=== PATIENT | male | born 1965 | race Caucasian/White ===

== ENCOUNTER → 2016-06-15 | Outpatient (CLI) | payer OTHER ==
--- NOTE | 2016-06-15 12:29 | RAD ---
EXAM DESCRIPTION: Right foot series. CLINICAL HISTORY: Right foot pain. COMPARISON: March 23, 2016 TECHNIQUE: Three views were submitted for evaluation. FINDINGS: Healing and mid diaphyseal 2nd metatarsal fracture with exuberant callus formation. No additional fractures on today's study. IMPRESSION: Interval development of exuberant callus formation about a mid diaphyseal 2nd metatarsal fracture. Electronically signed by: Isac Hurst MD 06/15/2016 12:27
== END ==
LOC: RAD 11:37
PROVIDERS: ATTEND Orthopaedic Surgery
DX: S92.321A Displaced fracture of second metatarsal bone, right foot, initial encounter for closed fracture (principal)

== ENCOUNTER → 2016-10-29 | Outpatient (CLI) | payer OTHER ==
--- NOTE | 2016-10-30 07:47 | RAD ---
Procedure: XR FOOT 3 OR MORE VIEWS Exam Date: 10/29/2016 12:00 AM CDT Ordering Provider: ARVIND POLLARD Clinical Indication: STRESS FX. FOOT PAIN. F/U EXAM. M06.89 Comparison: None Findings: Mature appearing periosteal callus formation is seen about the mid shaft of the second metatarsal. No new fracture or focal osseous destruction is seen. Mild great toe MTP joint space narrowing and degenerative spurring is seen. IMPRESSION: Near complete healing of the previous stress fracture involving the second metatarsal. Electronically signed by: Kacey Scales MD 10/30/2016 7:46 AM CDT
== END | disposition home or self-care (01) ==
LOC: RAD 16:19
PROVIDERS: ATTEND Internal Medicine Rheumatology
DX: M06.89 Other specified rheumatoid arthritis, multiple sites (principal)

== ENCOUNTER → 2016-12-29 | Outpatient (CLI) | payer OTHER ==
--- NOTE | 2016-12-30 09:46 | MRI ---
EXAM DESCRIPTION: Cervical Spine CLINICAL HISTORY: NECK PAIN right upper extremity numbness extending into the digits. C6-7 radiculopathy COMPARISON: None Available. TECHNIQUE: MRI of the cervical spine is performed according to our usual protocol. FINDINGS: Straightening of the cervical spine with multilevel disc desiccation with preservation of vertebral and disc height without significant subluxation is noted. The foramen magnum and craniocervical junction is normal with no evidence of intradural or intramedullary mass. Marrow edema or destructive process is not apparent. C2-3: the disc is well hydrated. There is no loss of height. There is no bulging. The facets are unremarkable with no significant hypertrophy. There is no stenosis or impingement. C3-4: Disc desiccation with minimal annular prominence with adequate spinal canal and mild narrowing of the right C3-4 neural foramen secondary to the mild facet arthropathy. Adequate left foramen. C4-5: Disc desiccation with annular bulge, minimally more prominent to the left of midline with adequate canal and right neural foramen and mild narrowing of the left neural foramen with mild facet arthropathy C5-6: Disc desiccation with moderate annular bulge most prominent in the midline consistent with a small central protrusion with adequate spinal canal and symmetric adequate neural foramina with mild facet arthropathy. C6-7: Disc desiccation with symmetric mild annular bulge if anything slightly more prominent to the left of midline with adequate canal and neural foramina. Very mild facet arthropathy. C7-T1: Disc desiccation with normal disc contour and what canal and left neural foramen with moderate facet arthropathy with moderate narrowing of the right C7-T1 neural foramen IMPRESSION: 1. Diffuse disc desiccation with multilevel mild annular bulges with small central disc protrusion at C5-6 and very slight annular prominence to the left of midline at C6-7 and C4-5 2. Mild narrowing of the right C3-4 neural foramen and left C4-5 neural foramen. 3. Mild narrowing of the right C7-T1 neural foramen secondary to facet disease and mild uncinate process hypertrophy. Electronically signed by: Marek Aguirre MD 12/30/2016 9:45 AM CDT
== END | disposition home or self-care (01) ==
LOC: MRI 08:59
PROVIDERS: ATTEND Psychiatry & Neurology Neurology
DX: M54.12 Radiculopathy, cervical region (principal)

== ENCOUNTER 2018-04-14 05:45 | Day surgery (SDC) | payer OTHER ==
[2018-04-14] MEDS ORDERED: LACTATED RINGERS 1,000 ML ONE (06:02)
[2018-04-14] MEDS ORDERED: PROPOFOL 200 MG/20 ML VIAL IV ONE (07:00)
[2018-04-14 07:52] VITALS: BP 132/89; TEMP 98; O2SAT 94
--- NOTE | 2018-04-14 09:22 | OP ---
DATE OF PROCEDURE: 04/14/18 PREPROCEDURE DIAGNOSIS: 1. Screening for colorectal cancer. POSTPROCEDURE DIAGNOSIS: 1. Small internal hemorrhoids. PROCEDURE: 1. Colonoscopy. SURGEON: Sunny Valentine MD COMPLICATIONS: No immediate complications. SEDATION: The patient was sedated via IV propofol by the Anesthesia Department. CONSENT: Prior to the procedure, risks, benefits and alternatives to the therapy were discussed with the patient. The risks included bleeding, infection , perforation and . The patient agreed to the procedure and signed a consent. PREPROCEDURE ANESTHESIA ASSESSMENT: An examination revealed no contraindication to sedation. Airway examination demonstrated a Mallampati class type 2, ASA grade assessment type 2. Throughout the procedure, the patient's blood pressure and additional vital signs were closely monitored. PROCEDURE: The patient was placed in the left lateral decubitus position and a rectal examination was performed. The rectal examination was within normal limits. The Olympus colonoscope was passed in the anus, rectum, traversing the colon to the level of the cecum as identified by the appendiceal orifice and the terminal ileum. The scope was retracted and the mucosa was visualized. The entirety of the exam was performed under direct visualization. Retroflexion was performed in the rectum. Preparation quality was excellent. The withdrawal time was greater than 6 minutes. The patient tolerated the procedure well. FINDINGS: 1. Small non-bleeding internal hemorrhoids were found in retroflexion. 2. Otherwise, the colonic exam was grossly unremarkable. 3. The terminal ileum was entirely normal. RECOMMENDATION: 1. Return the patient home. 2. Resume previous diet. 3. Repeat colonoscopy in the next 10 years. 4. May consider obtaining fecal occult blood testing/Cologuard in the subsequent 3 years. 5. All findings were discussed with the patient and family members. 6. Return to referring physician as previously scheduled. #[id number] MTDD
== END 2018-04-14 09:10 | disposition home or self-care (01) ==
LOC: AMB 05:45
PROVIDERS: ATTEND Internal Medicine Gastroenterology
DX: Z12.11 Encounter for screening for malignant neoplasm of colon (principal); K64.8 Other hemorrhoids; I10 Essential (primary) hypertension; N40.0 Benign prostatic hyperplasia without lower urinary tract symptoms; M06.9 Rheumatoid arthritis, unspecified; Z96.652 Presence of left artificial knee joint; Z88.7 Allergy status to serum and vaccine; Z88.8 Allergy status to other drugs, medicaments and biological substances; Z91.013 Allergy to seafood; Z79.899 Other long term (current) drug therapy
CPT/HCPCS: 00812; 45378; J3490; J7120

== ENCOUNTER → 2019-01-24 | Outpatient (CLI) | payer OTHER ==
--- NOTE | 2019-01-24 14:21 | RAD ---
EXAM DESCRIPTION: Foot,Right 3 Views CLINICAL HISTORY: PAIN COMPARISON: October 29, 2016. TECHNIQUE: AP, LATERAL, AND OBLIQUE radiographs of the right foot. FINDINGS: The bony details are obscured by the overlying cast. Interval postsurgical changes consistent with open reduction and internal fixation, most likely fusion of the tarsometatarsal joints with the compression plate and multiple screws. The hardware appears grossly intact. Postsurgical changes of prior repair of the hallux valgus deformity also noted with 2 screws through the shaft of the great toe proximal phalanx. No acute fracture or dislocation. Soft tissue swelling is noted along the dorsum of the foot. IMPRESSION: 1. Interval postsurgical changes of open reduction and internal fixation of the tarsometatarsal joint with compression plate and multiple screws. The hardware appears intact. 2. Diffuse soft tissue swelling along the dorsum of the foot. Electronically signed by: Hunter Martinez MD 01/24/2019 2:19 PM CDT
== END ==
LOC: RAD 12:34
PROVIDERS: ATTEND Orthopaedic Surgery
DX: M79.89 Other specified soft tissue disorders (principal); Z98.890 Other specified postprocedural states; Z87.81 Personal history of (healed) traumatic fracture

== ENCOUNTER → 2019-05-12 | Outpatient (CLI) | payer OTHER ==
--- NOTE | 2019-05-15 10:59 | US ---
EXAM DESCRIPTION: Extremity,Lower Josh Arteries: Ultrasound. CLINICAL HISTORY: ATHEROSCLEROSIS OF [place] ARTERIES OF EXTREMITIES COMPARISON: None. TECHNIQUE: Doppler evaluation of the bilateral lower extremity arterial flow waveforms and velocities. FINDINGS: Arterial waveforms in the right lower extremity are multiphasic from the right common femoral artery through the right peroneal and posterior tibial artery. Decreased velocity and monophasic waveform in the right dorsalis pedis artery.. Arterial waveforms in the left lower extremity are all multiphasic. Comments: Possible lesion in the right anterior tibial artery proximal versus distal. IMPRESSION: 1. Decreased velocity and monophasic waveform in the right dorsalis pedis artery suggests a lesion in the proximal versus distal right anterior tibial artery. Consider confirmation with bilateral lower extremity CTA runoff protocol. 2. No evidence of significant atherosclerotic occlusive disease in the left lower extremity. Electronically signed by: Ceferino Basilio MD 05/15/2019 10:57 AM [facility]
== END ==
LOC: US 13:28
PROVIDERS: ATTEND Family Medicine
DX: I70.219 Atherosclerosis of native arteries of extremities with intermittent claudication, unspecified extremity (principal)

== ENCOUNTER → 2020-01-22 | Outpatient (CLI) | payer OTHER ==
--- NOTE | 2020-01-22 12:32 | RAD ---
EXAM DESCRIPTION: Hand,Left 3 Views CLINICAL HISTORY: 54 years Male, PAIN IN LEFT HAND COMPARISON: None. Findings: 3 views/radiographs Location: Left hand No acute fracture or dislocation. Vascular calcifications. Moderate scattered osteoarthritis of the hands with preferential involvement of the IP and first CMC joints. No osseous erosion. IMPRESSION: No evidence of acute process in the left hand. Electronically signed by: Andrew Nuñez MD 01/22/2020 12:30 PM CDT
--- NOTE | 2020-01-22 12:34 | RAD ---
EXAM DESCRIPTION: Hand,Right 3 Views CLINICAL HISTORY: 54 years Male, PAIN IN RIGHT HAND COMPARISON: None. Findings: 3 views/radiographs Location: Right hand No acute fracture or dislocation. Vascular calcifications. Mild to moderate scattered osteoarthritis of the right hand with preferential involvement of the IP and first CMC joints. No focal osseous erosion. IMPRESSION: No evidence of acute process in the right hand. Electronically signed by: Andrew Nuñez MD 01/22/2020 12:32 PM CDT
== END | disposition home or self-care (01) ==
LOC: RAD 08:06
PROVIDERS: ATTEND Orthopaedic Surgery
DX: Z01.818 Encounter for other preprocedural examination (principal); M79.641 Pain in right hand; M79.642 Pain in left hand

== ENCOUNTER 2020-01-30 05:31 | Day surgery (SDC) | payer OTHER ==
[2020-01-30] MEDS ORDERED: ceFAZolin SODIUM 1 GM VIAL ONE ×2 (06:00→06:49)
[2020-01-30] MEDS ORDERED: LACTATED RINGERS 1,000 ML ONE (06:00)
[2020-01-30] MEDS ORDERED: SODIUM CHL 0.9% 100ML MINI-BAG 100 ML IVPB ONE (06:00)
[2020-01-30] MEDS ORDERED: VANCOMYCIN HCL INJ 1,000 MG VIAL IVPB ONE ×2 (06:49→09:24)
[2020-01-30] MEDS ORDERED: BUPIVACAINE 0.25% INJ 30 ML VIAL INJ ONE (06:50)
[2020-01-30] MEDS ORDERED: LIDOCAINE 1% 10 ML VIAL INJ ONE ×3 (06:50→10:00)
[2020-01-30] MEDS ORDERED: LACTATED RINGERS 1,000 ML IVS ONE (08:43)
[2020-01-30] MEDS ORDERED: MIDAZOLAM INJ 2 MG/2 ML VIAL ONE (08:53)
[2020-01-30] MEDS ORDERED: ceFAZolin SODIUM 1 GM VIAL IRRIG ONE (09:08)
[2020-01-30] MEDS ORDERED: BUPIVACAINE 0.5% 30 ML VIAL INJ ONE (09:08)
[2020-01-30] MEDS ORDERED: PROPOFOL 200 MG/20 ML VIAL IV ONE (10:00)
[2020-01-30 10:53] VITALS: BP 125/82; TEMP 96.6; O2SAT 97
--- NOTE | 2020-01-31 13:48 | OP ---
DATE OF PROCEDURE: 01/30/20 PREOPERATIVE DIAGNOSIS: 1. Carpal tunnel syndrome, right hand. POSTOPERATIVE DIAGNOSIS: 1. Carpal tunnel syndrome, right hand. PROCEDURE: 1. Carpal tunnel release. SURGEON: Chai Coe MD. ASSESSMENT RN: Ceferino Anderson CST, SA-C. ANESTHESIA: Local with sedation. COMPLICATIONS: None. FINDINGS: Thickening of the transverse carpal ligament and narrowing of the median nerve across the carpal tunnel. INDICATION: Andreas has a history of numbness in the hand that has been causing difficulty with his daily activities. Because of the ongoing symptoms, he has requested operative intervention. After discussing the risks, benefits and alternatives to operative therapy, the patient has given informed consent for carpal tunnel release. PROCEDURE: The patient was brought to the Operating Room and placed in the supine position. Sedation was administered and local anesthetic was injected into the operative area under sterile conditions. After the injection of anesthetic, the arm was sterilely prepped and draped. A longitudinal incision was made directly overlying the transverse carpal ligament and blunt dissection was carried down to the ligament. The transverse carpal ligament was sharply transected along its length and a [place] elevator was used to ensure complete release of the ligament. Once release had been confirmed, the wound was thoroughly irrigated and the wound was closed with Nylon suture. A sterile dressing was placed and the patient was taken to the Day Surgery Unit. POSTOPERATIVE PLAN: The patient has been encouraged to do range of motion of the digits and will followup with us in two days. #[id number] MTDD
== END 2020-01-30 10:38 | disposition home or self-care (01) ==
LOC: AMB 05:31
PROVIDERS: ATTEND Orthopaedic Surgery
DX: G56.01 Carpal tunnel syndrome, right upper limb (principal); M06.9 Rheumatoid arthritis, unspecified; Z88.7 Allergy status to serum and vaccine; Z88.1 Allergy status to other antibiotic agents; Z88.5 Allergy status to narcotic agent; Z91.013 Allergy to seafood; Z79.899 Other long term (current) drug therapy; Z79.01 Long term (current) use of anticoagulants
CPT/HCPCS: 01112; 64721; J0690; J2250; J3370; J3490; J7050; J7120

== ENCOUNTER → 2020-02-08 | Outpatient (CLI) | payer OTHER | LOC: LAB.O 12:15 | PROVIDERS: ATTEND Orthopaedic Surgery | DX: Z01.818 Encounter for other preprocedural examination (principal) ==

== ENCOUNTER 2020-02-20 05:36 | Day surgery (SDC) | payer OTHER ==
[2020-02-20] MEDS ORDERED: LACTATED RINGERS 1,000 ML ONE (06:48)
[2020-02-20] MEDS ORDERED: SODIUM CHL 0.9% 100ML MINI-BAG 100 ML IVPB ONE (06:48)
[2020-02-20] MEDS ORDERED: ceFAZolin SODIUM 1 GM VIAL ONE ×2 (06:48→10:57)
[2020-02-20] MEDS ORDERED: SODIUM CHLORIDE 0.9% 50 ML VIAL ONE (07:00)
[2020-02-20] MEDS ORDERED: LIDOCAINE 1% 10 ML VIAL INJ ONE ×3 (07:00→14:20)
[2020-02-20] MEDS ORDERED: PROPOFOL 200 MG/20 ML VIAL IV ONE (07:00)
[2020-02-20] MEDS ORDERED: VANCOMYCIN HCL INJ 1,000 MG VIAL IVPB ONE ×2 (10:57→14:20)
[2020-02-20] MEDS ORDERED: BUPIVACAINE 0.25% INJ 30 ML VIAL INJ ONE (10:58)
[2020-02-20] MEDS ORDERED: MIDAZOLAM INJ 2 MG/2 ML VIAL ONE (14:16)
[2020-02-20] MEDS ORDERED: ceFAZolin SODIUM 1 GM VIAL IRRIG ONE (14:20)
[2020-02-20] MEDS ORDERED: BUPIVACAINE 0.5% 30 ML VIAL INJ ONE (14:20)
[2020-02-20] MEDS ORDERED: BUPIVACAINE LIPOSOME 13.3 MG/ML VIAL INJ ONE (14:50)
[2020-02-20 15:55] VITALS: O2SAT 99
[2020-02-20 15:56] VITALS: BP 128/83; TEMP 96.5
--- NOTE | 2020-02-23 08:53 | OP ---
DATE OF PROCEDURE: 02/20/20 PREOPERATIVE DIAGNOSIS: 1. Carpal tunnel syndrome, left hand. POSTOPERATIVE DIAGNOSIS: 1. Carpal tunnel syndrome, left hand. PROCEDURE: 1. Carpal tunnel release. SURGEON: Chai Coe MD. WATER QUALITY ANALYST: Ceferino Anderson CST, SA-C. ANESTHESIA: Local with sedation. COMPLICATIONS: None. FINDINGS: Thickening of the transverse carpal ligament. INDICATION: Mr. Jarrett has a history of numbness consistent with carpal tunnel syndrome. He has requested operative intervention. After discussing the risks, benefits and alternatives to that, the patient has given informed consent for carpal tunnel release. PROCEDURE: The patient was brought to the Operating Room and placed in the supine position. Sedation was administered and local anesthetic was injected into the operative area under sterile conditions. After the injection of anesthetic, the arm was sterilely prepped and draped. A longitudinal incision was made directly overlying the transverse carpal ligament and blunt dissection was carried down to the ligament. The transverse carpal ligament was sharply transected along its length and a [place] elevator was used to ensure complete release of the ligament. Once release had been confirmed, the wound was thoroughly irrigated and the wound was closed with Nylon suture. A sterile dressing was placed and the patient was taken to the Day Surgery Unit. POSTOPERATIVE PLAN: The patient has been encouraged to do range of motion of the digits and will followup with us in two days. #[id number] MTDD
== END 2020-02-20 15:55 | disposition home or self-care (01) ==
LOC: AMB 05:36
PROVIDERS: ATTEND Orthopaedic Surgery
DX: G56.02 Carpal tunnel syndrome, left upper limb (principal); I10 Essential (primary) hypertension; Z79.899 Other long term (current) drug therapy; Z88.1 Allergy status to other antibiotic agents; Z91.013 Allergy to seafood; Z88.7 Allergy status to serum and vaccine
CPT/HCPCS: 01810; 64721; 80307; A4216; J0690; J2250; J3370; J3490; J7050; J7120

== ENCOUNTER → 2020-05-20 | Outpatient (CLI) | payer OTHER | LOC: GMAJ 16:29 | PROVIDERS: ATTEND Family Medicine | DX: I10 Essential (primary) hypertension (principal); Z12.5 Encounter for screening for malignant neoplasm of prostate; F52.21 Male erectile disorder; E55.9 Vitamin D deficiency, unspecified ==

== ENCOUNTER → 2020-06-13 | Outpatient (CLI) | payer BC, OTHER ==
--- NOTE | 2020-06-14 16:07 | US ---
EXAM DESCRIPTION: Extremity,Lower Josh Arteries: Ultrasound. CLINICAL HISTORY: abnormal result of other cardiovascular fx study COMPARISON: None. TECHNIQUE: Doppler evaluation of the bilateral lower extremity arterial flow waveforms and velocities. FINDINGS: Arterial waveforms in the right lower extremity are multiphasic from the right DIRECTOR OF GRADUATE ADMISSIONS to the right peroneal artery. Borderline monophasic with good velocity in the right posterior tibial artery and right dorsalis pedis artery.. Arterial waveforms in the left lower extremity are multiphasic from the left DIRECTOR OF GRADUATE ADMISSIONS to the left DPA.. Comments: Elevated velocity in the right dorsalis pedis artery could indicate impending high-grade stenosis. Elevated velocity in the left dorsalis pedis artery could indicate impending mild stenosis. IMPRESSION: Doppler ultrasound of the bilateral lower extremity arterial system shows early evidence of significant atherosclerotic occlusive disease in the bilateral dorsalis pedis arteries and the right posterior tibial artery.. Electronically signed by: Ceferino Basilio MD 06/14/2020 4:[address] [facility]
== END ==
LOC: US 14:30
PROVIDERS: ATTEND Family Medicine
DX: I70.203 Unspecified atherosclerosis of native arteries of extremities, bilateral legs (principal); R94.39 Abnormal result of other cardiovascular function study

== ENCOUNTER 2020-07-06 10:06 | Inpatient (IN) | payer BC ==
[2020-07-06] MEDS ORDERED: ACETYLCYSTEIN 20 % 6,000 MG/30 ML VIAL NEB ONE (10:29)
[2020-07-06] MEDS ORDERED: IPRATROPIUM/ALBUTEROL 3 ML VIAL NEB ONE (10:29)
[2020-07-06] MEDS ORDERED: REMDESIVIR 200 MG in SODIUM CHLORIDE 0.9% 250ML 250 ML IVPB ONE (10:30)
[2020-07-06] MEDS ORDERED: HYDROcodone 7.5MG/APAP 325MG 1 EA TAB PO ONE (10:30)
[2020-07-06] MEDS ORDERED: DEXAMETHASONE INJ 10 MG/ML VIAL IV ONE (10:30)
--- NOTE | 2020-07-06 10:38 | ED.PDOC ---
History of Present Illness - General Chief Complaint: Respiratory Problem Stated Complaint: shortness of breath,cough,+COVID Time Seen by Provider: 07/06/20 10:18 Source: patient Exam Limitations: no limitations - History of Present Illness Initial Comments: The patient is a 55-year-old male presented emergency room secondary to significant increase of cough with chest discomfort associated with cough this morning. The cough is very frequent and incessant. He does have a runny nose. No sore throat. He was diagnosed with coronavirus 6 days ago and 5 days ago received a monoclonal antibody infusion. He was started on azithromycin and a steroid at that point. Yesterday was his last day of both. Apparently his father and uncle both recently from coronavirus. The patient has rheumatoid arthritis and is on multiple immunosuppressants though Indocin and one of the immunosuppressants was held this week. He denies any fevers. Chest pain is worse with coughing. Oxygen saturations are 86 to 91% on room air. No history of any asthma or COPD. No history of any known coronary artery disease. 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 Celecoxib [From Celebrex] Allergy (Verified 07/06/20 10:51) Clindamycin Allergy (Verified 07/06/20 10:51) Diclofenac Allergy (Verified 07/06/20 10:51) Home Medications: Ambulatory Orders Leflunomide [Arava] 20 mg PO DAILY 11/06/13 Methotrexate Sodium [Methotrexate] 2.5 mg PO WKLY 11/06/13 l-Methylfolate W/ Algae-Vitami [Metanx 3-90.314-2-35 mg] 1 each PO DAILY 11/06/13 Esomeprazole Magnesium [Nexium] 40 mg PO DAILY 11/07/13 Doxepin HCl [Doxepin Hydrochloride] 25 mg PO BEDTIME 04/11/18 HYDROcodone 5MG/APAP 325MG [Shade 5/325] 1 ea PO PRN PRN 04/11/18 Tamsulosin [Flomax] 0.4 mg PO BEDTIME 04/12/18 Indomethacin ER [Indocin ER] 150 mg PO DAILY 01/26/20 Olmesartan Medoxomil [Benicar] 20 mg PO BEDTIME 01/26/20 Upadacitinib [Rinvoq] 15 mg PO DAILY 01/26/20 l-Methylfolate W/ Algae-Vitami [Metanx 3-90.314-2-35 mg] 1 cap PO DAILY 01/26/20 Hydroxychloroquine Sulfate [Hydroxychloroquine Sulfat] 400 mg PO DAILY 02/19/20 Review of Systems - Review of Systems Constitutional: States: malaise EENTM: States: nose congestion Respiratory: States: cough, short of breath Cardiology: States: chest pain - Discomfort mainly with cough Gastrointestinal/Abdominal: States: no symptoms reported Genitourinary: States: no symptoms reported Musculoskeletal: States: see HPI Skin: States: no symptoms reported Neurological: States: anxiety Endocrine: States: no symptoms reported Hematologic/Lymphatic: States: no symptoms reported All other Systems: No Change from Baseline Past Medical History (General) - Patient Medical History Hx Seizures: No Hx Stroke: No Hx Asthma: No Hx of COPD: No Hx Cardiac Disorders: No Hx Congestive Heart Failure: No Hx Pacemaker: No Hx Hypertension: Yes Hx Diabetes: No Hx Gastroesophageal Reflux: Yes Hx Cancer: No Hx MRSA: Yes MRSA Source:: Wound Surgical History: tonsillectomy - Vaccination History Hx Influenza Vaccination: No Hx Pneumococcal Vaccination: Yes - Social History Hx Tobacco Use: No Hx Alcohol Use: No Hx Substance Use: No Hx Substance Use Treatment: No Hx Depression: No Hx Physical Abuse: No Hx Emotional Abuse: No - Female History Patient is a Female of Child Bearing Age (10 -59 yrs old): No Patient : No Family Medical History - Family History Father Family History: Unknown Living Status: Hx Cardiac Disease: Yes Physical Exam - Physical Exam General Appearance: Alert, No apparent distress, Other - Very frequent coughing Eye Exam: bilateral normal Ears, Nose, Throat: hearing grossly normal, normal pharynx, nasal congestion Neck: full range of motion, supple Respiratory: no respiratory distress, no accessory muscle use, rhonchi - Mild Cardiovascular/Chest: normal peripheral pulses, no edema, tachycardia - Sinus Peripheral Pulses: radial,right: 2+, radial,left: 2+ Gastrointestinal/Abdominal: non tender, soft Rectal Exam: deferred Extremity: no pedal edema, normal capillary refill, pedal edema, other - Chronic changes to right lower extremity from previous surgeries 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 II-XII nml as tested, alert, oriented x 3, other - Patient is anxious Skin Exam: normal color Comments: Vital Signs - 24 hr 07/06/20 10:07 Temperature 98.4 F Pulse Rate [ 108 H Pulse ox] Respiratory 20 Rate Blood Pressure 154/90 [R arm] O2 Sat by Pulse 90 L Oximetry Vital Signs - 24 hr 07/06/20 07/06/20 07/06/20 10:07 10:16 11:10 Temperature 98.4 F Pulse Rate [ 108 H 108 H Pulse ox] Respiratory 20 20 Rate Blood Pressure 154/90 [R arm] O2 Sat by Pulse 90 L 93 L Oximetry Progress - Progress Progress: 07/06/20 12:46 The patient is a 55-year-old male with a history of arthritis presenting after about a week of a coronavirus infection with worsening respiratory symptoms. The patient does appear to have a coronavirus pneumonia. The patient is being covered with dexamethasone, remdesivir, Zosyn and azithromycin. Additionally he is being placed on Lovenox for DVT prophylaxis purposes. Blood cultures have been obtained. The patient does require supplemental oxygen to maintain saturations greater than 90%. The patient is at increased risk due to his rheumatoid arthritis and medications required to treat them as well as the fact that he has had to fairly close family members from coronavirus. Admit for continued care. van guzman [phone] - Results/Orders Results/Orders: EKG shows mild sinus tachycardia at 100 bpm. Normal axis. Normal R wave prog ression. No ST segment or T wave changes indicative of acute ischemia. Normal QT interval. Chest x-ray is consistent with Covid pneumonia. 07/06/20 10:30 EKG STAT 07/06/20 10:48 B-TYPE NATRIURETIC PEPTIDE/BNP Stat CARDIAC ENZYME GROUP Stat COMPLETE METABOLIC PROFILE Stat MAGNESIUM Stat THYROID STIMULATING HORMONE Stat 07/06/20 11:03 BLOOD CULTURE Stat 07/06/20 11:34 Azithromycin IV [Zithromax IV] 500 mg Sodium Chloride 0.9% 250Ml [NS 250ml] 250 ml IVPB ONCE 07/07/20 09:00 Oxygen Daily Laboratory Results - last 24 hr 07/06/20 07/06/2021 10:48 10:48 10:48 WBC 8.1 RBC 4.42 L Hgb 14.8 Hct 43.2 MCV 97.8 H MCH 33.4 H MCHC 34.1 RDW 15.5 H Plt Count 253 MPV 7.8 Absolute Neuts (auto) Not Reportable Absolute Lymphs (auto) Not Reportable Absolute Monos (auto) Not Reportable Absolute Eos (auto) Not Reportable Neutrophils % Not Reportable Neutrophils % (Manual) 79.0 H Lymphocytes % Not Reportable Lymphocytes % (Manual) 7.0 Monocytes % Not Reportable Monocytes % (Manual) 7.0 Eosinophils % Not Reportable Basophils % Not Reportable Band Neutrophils 7.0 H Eosinophils 0.0 Basophils 0.0 Platelet Estimate Normal Normal RBC Morphology 1+aniso PT 10.4 INR 1.05 PTT (SP) 26.6 Fibrinogen D-Dimer, Quantitative 734.0 H* Sodium 131 L Potassium 4.5 Chloride 92 L Carbon Dioxide 29 Anion Gap 14.5 BUN 26 H Creatinine 1.03 BUN/Creatinine Ratio 25.2 H Random Glucose 108 H Serum Osmolality 267.9 L Lactic Acid Calcium 8.7 Magnesium 2.3 Ferritin Total Bilirubin 1.3 H AST 131 H ALT 143 H Alkaline Phosphatase 27 L LD Total Creatine Kinase 258 H* CK-MB (CK-2) 1.4 Troponin I < 0.02 C-Reactive Protein B-Natriuretic Peptide < 15.0 Serum Total Protein 7.6 Albumin 4.0 Globulin 3.6 H Albumin/Globulin Ratio 1.1 TSH 0.63 07/06/20 07/06/20 07/06/20 10:48 10:48 10:48 WBC RBC Hgb Hct MCV MCH MCHC RDW Plt Count MPV Absolute Neuts (auto) Absolute Lymphs (auto) Absolute Monos (auto) Absolute Eos (auto) Neutrophils % Neutrophils % (Manual) Lymphocytes % Lymphocytes % (Manual) Monocytes % Monocytes % (Manual) Eosinophils % Basophils % Band Neutrophils Eosinophils Basophils Platelet Estimate Normal RBC Morphology PT INR PTT (SP) Fibrinogen 698 H D-Dimer, Quantitative Sodium Potassium Chloride Carbon Dioxide Anion Gap BUN Creatinine BUN/Creatinine Ratio Random Glucose Serum Osmolality Lactic Acid 1.6 Calcium Magnesium Ferritin > 1500.0 H Total Bilirubin AST ALT Alkaline Phosphatase LD Total Creatine Kinase CK-MB (CK-2) Troponin I C-Reactive Protein B-Natriuretic Peptide Serum Total Protein Albumin Globulin Albumin/Globulin Ratio TSH 07/06/20 10:48 WBC RBC Hgb Hct MCV MCH MCHC RDW Plt Count MPV Absolute Neuts (auto) Absolute Lymphs (auto) Absolute Monos (auto) Absolute Eos (auto) Neutrophils % Neutrophils % (Manual) Lymphocytes % Lymphocytes % (Manual) Monocytes % Monocytes % (Manual) Eosinophils % Basophils % Band Neutrophils Eosinophils Basophils Platelet Estimate Normal RBC Morphology PT INR PTT (SP) Fibrinogen D-Dimer, Quantitative Sodium Potassium Chloride Carbon Dioxide Anion Gap BUN Creatinine BUN/Creatinine Ratio Random Glucose Serum Osmolality Lactic Acid Calcium Magnesium Ferritin Total Bilirubin AST ALT Alkaline Phosphatase LD Total 389 H Creatine Kinase CK-MB (CK-2) Troponin I C-Reactive Protein 9.0 H* B-Natriuretic Peptide Serum Total Protein Albumin Globulin Albumin/Globulin Ratio TSH Departure - Departure Clinical Impression: Pneumonia due to COVID-19 virus, Immunocompromised state Disposition: Admit Patient Home Medications: Ambulatory Orders Leflunomide [Arava] 20 mg PO DAILY 11/06/13 Methotrexate Sodium [Methotrexate] 2.5 mg PO WKLY 11/06/13 l-Methylfolate W/ Algae-Vitami [Metanx 3-90.314-2-35 mg] 1 each PO DAILY 11/06/13 Esomeprazole Magnesium [Nexium] 40 mg PO DAILY 11/07/13 Doxepin HCl [Doxepin Hydrochloride] 25 mg PO BEDTIME 04/11/18 HYDROcodone 5MG/APAP 325MG [Shade 5/325] 1 ea PO PRN PRN 04/11/18 Tamsulosin [Flomax] 0.4 mg PO BEDTIME 04/12/18 Indomethacin ER [Indocin ER] 150 mg PO DAILY 01/26/20 Olmesartan Medoxomil [Benicar] 20 mg PO BEDTIME 01/26/20 Upadacitinib [Rinvoq] 15 mg PO DAILY 01/26/20 l-Methylfolate W/ Algae-Vitami [Metanx 3-90.314-2-35 mg] 1 cap PO DAILY 01/26/20 Hydroxychloroquine Sulfate [Hydroxychloroquine Sulfat] 400 mg PO DAILY 02/19/20 Decision To Admit - Decistion To Admit Decision to Admit Reason: Medical Nature Decision to Admit Date: 07/06/20 Decision to Admit Time: 12:48
--- NOTE | 2020-07-06 10:41 | RAD ---
EXAM: XR Chest, 1 View CLINICAL HISTORY: covid pna TECHNIQUE: Frontal view of the chest. COMPARISON: 11/06/2013 FINDINGS: Lungs: Groundglass infiltrates are identified in the periphery of both lungs left greater than right. Pleural space: No pneumothorax. No pleural effusion. Heart: Normal cardiac size and configuration. Mediastinum: No abnormality noted. Bones/joints: No osseous destruction or sclerosis noted. IMPRESSION: Groundglass infiltrates noted with typical imaging features of covid pneumonia. Electronically signed by: Malina Guzman MD 07/06/2020 10:40 AM [facility]
[2020-07-06] MEDS ORDERED: PIPERACILLIN/TAZOBACTAM 3.375 GM in SODIUM CHLORIDE 0.9% 100ML 100 ML IVPB ONE (11:34)
[2020-07-06] MEDS ORDERED: AZITHROMYCIN IV 500 MG in SODIUM CHLORIDE 0.9% 250ML 250 ML IVPB ONE (11:34)
[2020-07-06] MEDS ORDERED: ENOXAPARIN SODIUM 100 MG/ML SYG SUBCU ONE (11:50)
--- NOTE | 2020-07-06 12:31 | HP ---
SUPERVISING PHYSICIAN: Bello Hayes MD CHIEF COMPLAINT: Shortness of breath. Recent diagnosis of Covid. HISTORY OF PRESENT ILLNESS: Mr. Jarrett is a 55 year-old male patient who presented to the Emergency Room today secondary to a significant increasing cough with chest discomfort that he associated this morning with previous Covid infection. He was diagnosed 6 days previous with Covid and received monoclonal antibody infusion. At that time, he was started on azithromycin and steroids. He finished his last dose of both of those yesterday. He has a history of rheumatoid arthritis and is on multiple immunosuppressants. He denied any chest pain other than associated with the cough. Oxygen saturation in the Emergency Room showed 86 6o 91% on room air. Laboratory studies today shows a white count of 8,100 with a left shift. His coagulation studies did show a D-dimer elevated at 734 and chemistries showed C-reactive protein of 9.0. Creatinine normal at 1.3 with normal lactic acid at 1.6. Chest x-ray, single-view, per radiology interpretation shows groundglass infiltrates noted with typical imaging features of Covid pneumonia. Given his underlying immunosuppressant history with rheumatoid arthritis and recent Covid diagnoses and worsening shortness of breath, he is now going to be admitted for further treatment of Covid pneumonitis. He was admitted in stable condition. PAST MEDICAL HISTORY: 1. Rheumatoid arthritis followed by Dr. Misael Che in [place]. 2. Hypertension. 3. Benign prostatic hypertrophy. 4. Gout. 5. Osteoporosis with multiple fragility fractures of the right foot. PAST SURGICAL HISTORY: 1. Left knee replacement in 2013. 2. Right foot reconstruction in 2018. 3. Carpal tunnel release in 2019. 4. Right knee arthroscopic procedure for median meniscal tear in 2008. CURRENT MEDICATIONS: He is brining an updated list of medications for verification in electronic medical records. ALLERGIES: Shellfish, morphine, Celebrex, Clindamycin, Diclofenac. FAMILY HISTORY: Noncontributory to current admission. SOCIAL HISTORY: The patient is retired from [employer]. He is and has 3 children. He lives in [place], [place]. He has no history of smoking and does not drink or use illicit drugs. REVIEW OF SYSTEMS: CONSTITUTIONAL: Positive for general malaise, fevers. HEENT: Positive for nasal congestion. Denies headaches. earaches, sore throat, vision changes. CHEST: Positive for history of worsening cough, shortness of breath as noted in history of present illness. HEART: Denies chest pain other than associated with cough. No reported syncopal episodes, no tachycardia. ABDOMEN: Denies nausea, vomiting, diarrhea or constipation, abdominal pain GENITOURINARY: Denies dysuria, hematuria or polyuria. MUSCULOSKELETAL: Denies arthralgias other than chronic pain in his right foot with multiple surgeries. SKIN: Denies unexplained lesions, rashes, moles or changes. NEUROLOGIC: Does have some anxiety but denies history of ataxia, seizures, vision changes, migraines or other neurological deficits. HEMATOLOGICAL: Denies unexplained bleeding, easy bruising or transfusion reactions. PHYSICAL EXAMINATION: VITAL SIGNS: Admission to the Emergency Room, temperature 100.4, blood pressure 120/77, respirations 20, tachycardic at 121 with oxygen saturation on 3 liters nasal cannula and initially on room air was 86%. GENERAL: The patient looks to be resting comfortably and in no apparent distress. He does exhibit a frequent cough. HEENT: Tympanic membranes are clear bilaterally. Oropharynx is pink, moist. There was some mild nasal congestion. NECK: Supple, non-tender, full range of motion, no jugular venous distention. CHEST: Mild rhonchi heard bilateral but otherwise fairly clear, just a little diminished. No rales or wheezing. CARDIOVASCULAR: Regular rate and rhythm without appreciable murmurs, rubs, or gallops. He is showing sinus tachycardia on bedside monitor. ABDOMEN: Soft, non-tender, positive bowel sounds. BACK: Without CVA tenderness or vertebral tenderness. EXTREMITIES: He has chronic changes to his right foot from pervious surgery, otherwise no cyanosis, clubbing, or edema. RECTAL: Exam deferred. NEUROLOGIC: Cranial nerves II through XII are grossly intact. He is alert and oriented x3. LABORATORY: White count 8,100, hemoglobin 14.8, hematocrit 43.2, platelet count 253,000. Differential does show a left shift with 7 bands. PT/PTT normal. D- dimer elevated at 734, fibrinogen 698. Chemistries showing sodium 131, potassium 4.5, BUN 26, creatinine 1.03, lactic acid 1.6, calcium and magnesium normal. Ferritin greater than 1500. Bilirubin showing slight elevation at 1.3, AST elevated at 131, ALT at 143. LDH 389, CK 258, C-reactive protein 9. BMP less than 15, TSH normal at 0.63. MICROBIOLOGY: Blood cultures pending. RADIOLOGY: Chest x-ray per radiology interpretation showed groundglass infiltrates noted, typical imaging features of Covid pneumonia. Please see that report for details. Covid testing was done in the clinic 6 days previously and he was positive. ASSESSMENT: 1. Covid pneumonia in a patient immunocompromised due to rheumatoid arthritis and multiple immunosuppressant medications. 2. History of osteoarthritis on multiple rheumatoid medications. 3. Hypertension. 4. Benign prostatic hypertrophy. 5. Gout. 6. Osteoporosis with associated multiple fragility fractures of the right foot. PLAN: The patient is going to be admitted for initiation of treatment for Covid. He will be continued on Rocephin, Remdesivir. azithromycin, Decadron. He will be on Protonix for PPI for gastric protection. Given his elevated D- dimer and his risk factors, we will start him on fairly aggressive management with Lovenox at 1 mg/kg. He will have aggressive pulmonary hygiene with albuterol treatments as needed. Will follow his labs as per protocol. I would anticipate his length of stay to be at least 2-3 days. Given his significant cough, we will start him on some promethazine with codeine as needed. Until we can transition patient to outpatient management, we will continue to monitor and treat as needed. [facility][id number] [facility]
[2020-07-06] MEDS ORDERED: IBUPROFEN 200 MG TAB PO ONE (12:55)
[2020-07-06] MEDS: IV SET AND CAP CHANGE INJ INJ SCH (14:00)
[2020-07-06] MEDS ORDERED: ALBUTEROL INHALER 64 PUFF/8GM INH PRN (14:29)
[2020-07-06] MEDS ORDERED: ONDANSETRON INJ 4 MG/2 ML VIAL IV PRN (14:32)
[2020-07-06] MEDS ORDERED: ACETAMINOPHEN 325 MG TAB PO PRN (14:32)
[2020-07-06] MEDS ORDERED: SODIUM CHLORIDE 0.9% (FLUSH) 10 ML SYG IV PRN (14:32)
[2020-07-06] MEDS: ALBUTEROL INHALER 64 PUFF/8GM INH SCH ×2 (16:59→19:45)
[2020-07-06] MEDS: KETOROLAC TROMETHAMINE INJ 30 MG/ML VIAL IV SCH ×2 (17:15→22:00)
[2020-07-06] MEDS: PROMETHAZINE W/CODEINE SYR 6.25 MG/10 MG/5 ML UD PO PRN (17:43)
[2020-07-06] MEDS: ENOXAPARIN SODIUM 100 MG/ML SYG SUBCU SCH (20:30)
[2020-07-06] MEDS: TEMAZEPAM 15 MG CAP PO PRN (23:44)
[2020-07-07] MEDS: KETOROLAC TROMETHAMINE INJ 30 MG/ML VIAL IV SCH ×4 (04:25→22:05)
[2020-07-07] MEDS: PANTOPRAZOLE SODIUM IV 40 MG VIAL IV SCH (06:14)
--- NOTE | 2020-07-07 07:06 | RAD ---
PROCEDURE: XR CHEST 1 VIEW HISTORY: COVID COMPARISON: Portable chest, 07/06/2020 FINDINGS: The heart is normal in stable. Focal airspace disease present in the periphery of the mid lungs bilaterally, unchanged. No pleural effusion or pneumothorax. IMPRESSION: Peripheral bilateral airspace disease is unchanged compatible with COVID. Electronically signed by: Rogerio Nieto MD 07/07/2020 7:05 AM [facility]
[2020-07-07] MEDS ORDERED: REMDESIVIR IV 100 MG VIAL ONE (07:21)
[2020-07-07] MEDS ORDERED: SODIUM CHLORIDE 0.9% 250ML 250 ML ONE ×2 (07:21→10:45)
[2020-07-07] MEDS: ALBUTEROL INHALER 64 PUFF/8GM INH SCH ×4 (09:00→20:53)
[2020-07-07] MEDS: ENOXAPARIN SODIUM 100 MG/ML SYG SUBCU SCH ×2 (09:08→20:30)
[2020-07-07] MEDS: DEXAMETHASONE INJ 10 MG/ML VIAL IV SCH (09:09)
[2020-07-07] MEDS: REMDESIVIR 100 MG in SODIUM CHLORIDE 0.9% 250ML 250 ML IVPB SCH (09:09)
[2020-07-07] MEDS: BIFIDOBACTERIUM INFANTIS 4 MG CAP PO SCH (09:09)
[2020-07-07] MEDS ORDERED: AZITHROMYCIN IV 500 MG VIAL IVPB ONE (10:44)
[2020-07-07] MEDS: AZITHROMYCIN IV 500 MG in SODIUM CHLORIDE 0.9% 250ML 250 ML IVPB SCH (11:32)
--- NOTE | 2020-07-07 16:04 | PN ---
SUPERVISING PHYSICIAN: Funmi Hayes MD DATE: 07/07/20 SUBJECTIVE: The patient notes he feels much better today. He actually has his taste back. He can breathe through his nose. He does not feel as horrible with body aches as he did yesterday. He is actual O2 saturations are remaining stable. He is maintaining his O2 on 3 liters nasal cannula without any significant distress. OBJECTIVE: VITAL SIGNS: Temperature 98.8, pulse 84, blood pressure 128/88, respirations 20, saturation 92-93% on 3 liters nasal cannula. GENERAL: The patient is resting comfortably. He does not look to be in any distress. CHEST: Fairly clear, just a little diminished towards the bases bilaterally. HEART: Regular rate and rhythm. ABDOMEN: Soft, nontender. Positive bowel sounds. EXTREMITIES: No edema. NEUROLOGIC: Alert and oriented times three. LABORATORY: White count 6,800, hemoglobin 12.9, hematocrit 38.0, platelet count 220,000. Differential does show a left shift, but no longer shows any bands today. Coagulation studies show D-dimer normalized to 284. Chemistries show improvement in his sodium at 132. Creatinine 0.92. Magnesium and calcium are normal. AST down to 90, ALT down to 116. CRP went from 9.0 to 11.9. MICROBIOLOGY: Blood cultures remain negative at 24 hours. RADIOLOGY: Repeat chest x-ray this morning per radiologic interpretation shows peripheral bilateral airspace disease, unchanged, compatible with COVID. ASSESSMENT: 1. COVID pneumonia in a patient immunocompromised due to rheumatoid arthritis and multiple immunosuppressant medications. 2. Mild electrolyte imbalance in the form of hyponatremia, improving. 3. History of osteoarthritis on multiple rheumatoid medications. 4. Hypertension. 5. Benign prostatic hypertrophy. 6. Gout. 7. Osteoporosis with associated multiple fragility fractures of the right foot. PLAN: We will continue current plan of care with treatment with Rocephin, remdesivir, azithromycin, Decadron. He remains on Protonix. I do have him on weight based 1 mg per kg Lovenox just because of his risk factors although his D-dimer did normalize today. He is still maintaining O2 saturations below 4 liter on nasal cannula which hopefully will allow him to go home tomorrow. Until the patient can transition to outpatient management, we will continue to monitor and treat as needed. When he discharges, we probably need to talk to his primary care physician, Dr. Kim, to see if he wants him to go home on any anticoagulation as well as need to make note to his multiple medications for his rheumatoid arthritis while he is in the process of getting over COVID infection. #[id number] [facility]
[2020-07-07] MEDS ORDERED: KETOROLAC TROMETHAMINE INJ 30 MG/ML VIAL ONE ×2 (16:28→19:20)
[2020-07-07] MEDS ORDERED: PROMETHAZINE W/CODEINE SYR 6.25 MG/10 MG/5 ML UD PO ONE (17:39)
[2020-07-07] MEDS: PROMETHAZINE W/CODEINE SYR 6.25 MG/10 MG/5 ML UD PO PRN (18:01)
[2020-07-07] MEDS ORDERED: ENOXAPARIN SODIUM 100 MG/ML SYG SUBCU ONE (19:20)
[2020-07-07] MEDS ORDERED: TEMAZEPAM 15 MG CAP ONE (19:20)
[2020-07-07] MEDS ORDERED: SODIUM CHL 0.9% 50ML MIN-BAG+ 50 ML IVPB ONE (19:21)
[2020-07-07] MEDS ORDERED: cefTRIAXone SODIUM 1 GM VIAL ONE (19:21)
[2020-07-07] MEDS: guaiFENesin ER TAB 600 MG TAB PO SCH (20:30)
[2020-07-07] MEDS: cefTRIAXone SODIUM 1 GM in SODIUM CHL 0.9% 50ML MIN-BAG+ 50 ML IVPB SCH (20:30)
[2020-07-07] MEDS: TEMAZEPAM 15 MG CAP PO PRN (21:42)
[2020-07-08] MEDS ORDERED: KETOROLAC TROMETHAMINE INJ 30 MG/ML VIAL ONE ×2 (03:06→08:28)
[2020-07-08] MEDS ORDERED: PANTOPRAZOLE SODIUM IV 40 MG VIAL ONE (03:06)
[2020-07-08] MEDS: KETOROLAC TROMETHAMINE INJ 30 MG/ML VIAL IV SCH (04:30)
[2020-07-08] MEDS: PANTOPRAZOLE SODIUM IV 40 MG VIAL IV SCH (05:58)
--- NOTE | 2020-07-08 06:25 | RAD ---
PROCEDURE:XR CHEST 1 VIEW HISTORY:COVID COMPARISON: July 07, 2020 FINDINGS: The heart appears unremarkable. There are stable bilateral pulmonary infiltrates. There is no effusion or pneumothorax There are no acute bony or soft tissue abnormalities. IMPRESSION: Stable chest x-ray. Electronically signed by: Jamil Bhatia MD 07/08/2020 6:24 AM [facility]
[2020-07-08] MEDS ORDERED: BIFIDOBACTERIUM INFANTIS 4 MG CAP ONE (08:27)
[2020-07-08] MEDS ORDERED: ENOXAPARIN SODIUM 100 MG/ML SYG SUBCU ONE (08:27)
[2020-07-08] MEDS ORDERED: DEXAMETHASONE INJ 10 MG/ML VIAL ONE (08:27)
[2020-07-08] MEDS ORDERED: SODIUM CHLORIDE 0.9% 250ML 250 ML ONE (08:28)
[2020-07-08] MEDS ORDERED: REMDESIVIR IV 100 MG VIAL ONE (08:28)
[2020-07-08] MEDS: ALBUTEROL INHALER 64 PUFF/8GM INH SCH ×4 (08:45→20:50)
[2020-07-08] MEDS: BIFIDOBACTERIUM INFANTIS 4 MG CAP PO SCH (09:09)
[2020-07-08] MEDS: DEXAMETHASONE INJ 10 MG/ML VIAL IV SCH (09:09)
[2020-07-08] MEDS: guaiFENesin ER TAB 600 MG TAB PO SCH ×2 (09:09→20:43)
[2020-07-08] MEDS: ENOXAPARIN SODIUM 100 MG/ML SYG SUBCU SCH ×2 (09:10→20:42)
[2020-07-08] MEDS: REMDESIVIR 100 MG in SODIUM CHLORIDE 0.9% 250ML 250 ML IVPB SCH (09:10)
--- NOTE | 2020-07-08 10:04 | PN ---
SUPERVISING PHYSICIAN: Kennedy Kim MD DATE: 07/08/20 SUBJECTIVE: The patient is sitting up in a chair with no significant complaints of shortness of breath. He actually has no complaints at all. He does have a dry, hacking cough which is nagging at times, but other than that, he is without complaint. OBJECTIVE: VITAL SIGNS: Blood pressure 145/83, heart rate 90, respiratory rate 16, temperature 98.6, oxygen saturation 95% on 3 liters via nasal cannula. GENERAL: Mr. Jarrett is a 55-year-old male patient in no active distress. NEUROLOGIC: The patient is alert and oriented. LUNGS: Diminished, but otherwise clear to auscultation bilaterally. CARDIOVASCULAR: Regular rate and rhythm. Normal S1, S2. ABDOMEN: Soft. Positive bowel sounds. EXTREMITIES: Lower extremities with no edema. LABORATORY: White count 10.2, hemoglobin 12.9, platelet count 261. D-dimer 153. CRP 4.9, which is improved from 11.9. Transaminases are improved from yesterday. AST 63 from 90. ALT 90 from 116. BUN 29, creatinine 0.85. RADIOLOGY: Chest x-ray showing no acute changes from previous. ASSESSMENT: 1. Acute hypoxemic respiratory failure. 2. COVID pneumonitis. 3. Rheumatoid arthritis on immunosuppressive therapy. 4. Hypertension. 5. Benign prostatic hypertrophy. 6. Gout. 7. Osteoporosis. PLAN: We will continue the remdesivir, dexamethasone and empiric antibiotics. We will continue bronchodilator therapy as well as pulmonary hygiene. We will continue to wean oxygen as tolerated and monitor x-rays and labs as needed. [facility][id number] [facility]
[2020-07-08] MEDS ORDERED: KETOROLAC TROMETHAMINE INJ 30 MG/ML VIAL IV PRN (10:10)
[2020-07-08] MEDS: PROMETHAZINE W/CODEINE SYR 6.25 MG/10 MG/5 ML UD PO PRN ×2 (10:20→16:15)
[2020-07-08] MEDS: AZITHROMYCIN IV 500 MG in SODIUM CHLORIDE 0.9% 250ML 250 ML IVPB SCH (11:23)
[2020-07-08] MEDS: CHLORPHENIRAMINE W/HYDROCODONE 5 ML UD PO SCH (17:50)
[2020-07-08] MEDS: cefTRIAXone SODIUM 1 GM in SODIUM CHL 0.9% 50ML MIN-BAG+ 50 ML IVPB SCH (20:43)
[2020-07-08] MEDS: TEMAZEPAM 15 MG CAP PO PRN (21:02)
[2020-07-09] MEDS ORDERED: PANTOPRAZOLE SODIUM TAB 40 MG PO ONE (03:19)
[2020-07-09] MEDS: PROMETHAZINE W/CODEINE SYR 6.25 MG/10 MG/5 ML UD PO PRN ×3 (03:19→20:42)
[2020-07-09] MEDS: PANTOPRAZOLE SODIUM TAB 40 MG PO SCH (06:02)
[2020-07-09] MEDS: CHLORPHENIRAMINE W/HYDROCODONE 5 ML UD PO SCH ×2 (06:02→17:05)
--- NOTE | 2020-07-09 07:20 | RAD ---
EXAM: XR Chest, 1 View CLINICAL HISTORY: The patient is 55 years old and is Male; COVID TECHNIQUE: Single upright portable view of the chest. COMPARISON: July 08, 2020. FINDINGS: Lungs: Pulmonary opacities in the lungs are not significantly changed. No pulmonary vascular congestion. Pleural space: Unremarkable. No pneumothorax. Heart: Cardiomediastinal silhouette is not significantly changed given the differences in technique. Mediastinum: See above. Bones/joints: The bones and joints are unchanged as visualized. Upper abdomen: No free air in the visualized upper abdomen. IMPRESSION: No significant change compared with the prior study. Electronically signed by: Isabel Nieves MD 07/09/2020 7:19 AM [facility]
[2020-07-09] MEDS: ENOXAPARIN SODIUM 100 MG/ML SYG SUBCU SCH ×2 (08:20→20:41)
[2020-07-09] MEDS: REMDESIVIR 100 MG in SODIUM CHLORIDE 0.9% 250ML 250 ML IVPB SCH (08:20)
[2020-07-09] MEDS: DEXAMETHASONE INJ 10 MG/ML VIAL IV SCH (08:21)
[2020-07-09] MEDS: BIFIDOBACTERIUM INFANTIS 4 MG CAP PO SCH (08:21)
[2020-07-09] MEDS: guaiFENesin ER TAB 600 MG TAB PO SCH ×2 (08:21→20:42)
[2020-07-09] MEDS: ALBUTEROL INHALER 64 PUFF/8GM INH SCH ×4 (08:40→21:01)
[2020-07-09] MEDS: BUDESONIDE NEBS 0.5 MG/2 ML INH NEB SCH ×2 (09:40→21:01)
--- NOTE | 2020-07-09 10:28 | PN ---
SUPERVISING PHYSICIAN: Kennedy Kim MD DATE: 07/09/20 SUBJECTIVE: The patient still feels really good except for the cough. He was started Tussionex yesterday in addition to the promethazine with codeine. He states the cough is a little bit better. OBJECTIVE: VITAL SIGNS: Blood pressure 135/87, heart rate 80, respiratory rate 18, temperature 98.3, oxygen saturation 91% on 1 liter via nasal cannula. GENERAL: Mr. Jarrett is a 55-year-old male patient in no active distress. NEUROLOGIC: The patient is alert. LUNGS: Some scattered rales, but mainly diminished. CARDIOVASCULAR: Regular rate and rhythm. Normal S1, S2. ABDOMEN: Soft. Positive bowel sounds. EXTREMITIES: Lower extremities with no edema. LABORATORY: CBC with white count 9.2, hemoglobin 12.7, platelet count 273. Chemistry still pending. RADIOLOGY: Chest x-ray not showing any acute changes. ASSESSMENT: 1. Acute hypoxemic respiratory failure. 2. COVID pneumonitis. 3. Rheumatoid arthritis on immunosuppressive therapy. 4. Hypertension. 5. Benign prostatic hypertrophy. 6. Gout. 7. Osteoporosis. PLAN: We have successfully decreased the amount of oxygen that he is on, however, he is still requiring about 1 liter. We will continue the remdesivir, empiric antibiotics and dexamethasone. We will continue bronchodilator therapy and I am going to add some Pulmicort to see if it helps with his cough. We will continue to monitor x-rays and labs as needed. I spoke with him and his regarding discharge planning. I discussed the possibility of requiring home oxygen, which initially the patient did not want, however, at this point, if he is not in any distress and just requiring 1 or 2 liters of oxygen to go home, he definitely could do that. However, he is not quite ready to go as of yet. #[id number] [facility]
[2020-07-09] MEDS: AZITHROMYCIN IV 500 MG in SODIUM CHLORIDE 0.9% 250ML 250 ML IVPB SCH (10:46)
[2020-07-09] MEDS: IV SET AND CAP CHANGE INJ INJ SCH (15:11)
[2020-07-09] MEDS: cefTRIAXone SODIUM 1 GM in SODIUM CHL 0.9% 50ML MIN-BAG+ 50 ML IVPB SCH (20:39)
[2020-07-09] MEDS: TEMAZEPAM 15 MG CAP PO PRN (20:42)
[2020-07-10] MEDS: PANTOPRAZOLE SODIUM TAB 40 MG PO SCH (05:45)
[2020-07-10] MEDS: CHLORPHENIRAMINE W/HYDROCODONE 5 ML UD PO SCH (05:45)
[2020-07-10] MEDS: BUDESONIDE NEBS 0.5 MG/2 ML INH NEB SCH (08:00)
[2020-07-10] MEDS: ALBUTEROL INHALER 64 PUFF/8GM INH SCH ×2 (08:00→11:40)
[2020-07-10] MEDS: BIFIDOBACTERIUM INFANTIS 4 MG CAP PO SCH (08:36)
[2020-07-10] MEDS: ENOXAPARIN SODIUM 100 MG/ML SYG SUBCU SCH (08:36)
[2020-07-10] MEDS: guaiFENesin ER TAB 600 MG TAB PO SCH (08:36)
[2020-07-10] MEDS: DEXAMETHASONE INJ 10 MG/ML VIAL IV SCH (08:36)
[2020-07-10] MEDS: REMDESIVIR 100 MG in SODIUM CHLORIDE 0.9% 250ML 250 ML IVPB SCH (08:37)
[2020-07-10] MEDS: PROMETHAZINE W/CODEINE SYR 6.25 MG/10 MG/5 ML UD PO PRN (08:37)
[2020-07-10] MEDS: AZITHROMYCIN IV 500 MG in SODIUM CHLORIDE 0.9% 250ML 250 ML IVPB SCH (11:00)
[2020-07-10 12:15] VITALS: BP 131/80; TEMP 96.7; O2SAT 90
--- NOTE | 2020-07-24 11:30 | DS ---
SUPERVISING PHYSICIAN: Kennedy Kim MD ADMISSION DIAGNOSIS: 1. COVID pneumonia in a patient immunocompromised due to rheumatoid arthritis and multiple immunosuppressant medications. 2. History of osteoarthritis on multiple rheumatoid medications. 3. Hypertension. 4. Benign prostatic hypertrophy. 5. Gout. 6. Osteoporosis with associated multiple fragility fractures of the right foot. DISCHARGE DIAGNOSIS: 1. Acute hypoxemic respiratory failure. 2. COVID pneumonitis. 3. Rheumatoid arthritis on immunosuppressive therapy. 4. Hypertension. 5. Benign prostatic hypertrophy. 6. Gout. 7. Osteoporosis. REASON FOR HOSPITALIZATION: Mr. Jarrett is a 55 year-old male patient who presented to the Emergency Room today secondary to a significant increasing cough with chest discomfort that he associated this morning with previous COVID infection. He was diagnosed 6 days previous with COVID and received monoclonal antibody infusion. At that time, he was started on azithromycin and steroids. He finished his last dose of both of those yesterday. He has a history of rheumatoid arthritis and is on multiple immunosuppressants. He denied any chest pain other than associated with the cough. Oxygen saturation in the Emergency Room showed 86 6o 91% on room air. Laboratory studies today shows a white count of 8,100 with a left shift. His coagulation studies did show a D-dimer elevated at 734 and chemistries showed C-reactive protein of 9.0. Creatinine normal at 1.3 with normal lactic acid at 1.6. Chest x-ray, single-view, per radiology interpretation shows groundglass infiltrates noted with typical imaging features of COVID pneumonia. Given his underlying immunosuppressant history with rheumatoid arthritis and recent COVID diagnoses and worsening shortness of breath, he is now going to be admitted for further treatment of COVID pneumonitis. He was admitted in stable condition. LABORATORY: Discharge white count 8,700, hemoglobin 13, hematocrit 38, platelet count 268,000. Differential with a left shift. Coagulation studies showed D- dimer normalized to 153. Chemistries show sodium 133, potassium 4.2, otherwise electrolytes normal. Creatinine 0.77, calcium 8.3, C-reactive protein 10.7. MICROBIOLOGY: Blood cultures negative after 5 days. RADIOLOGY: Final chest x-ray on discharge showed pulmonary opacities in the lungs with no pulmonary vascular congestion. Please see all reports for details. EK-lead EKG on admission showed normal sinus rhythm without any ST or T- wave changes to indicate acute ischemia. HOSPITAL COURSE: Mr. Jarrett was admitted for COVID pneumonitis. He was treated with Rocephin, remdesivir, azithromycin, Decadron. He was also started on Lovenox 1 mg per kg. His oxygenation needs showed initially on admission his oxygen saturation was 90% on room. He did go up to a maximum of 3 liters nasal cannula with oxygen saturation 93-96%. On date of discharge, ambulation study showed he dropped down to 89% when walking approximately 150 feet. He recovered to 90-91% during the walk, requiring 1 to 2 liters to maintain greater than 93%. It was felt he had improved clinically well enough to continue with outpatient management. Home oxygen arrangements were made. On date of discharge, vital signs showed he was afebrile at 96.7, pulse 99, blood pressure 131/80, respirations 18, saturation 93-94% on 2 liters nasal cannula. PLAN: Mr. Jarrett was discharged on 07/10/[address] Kim on 07/15/20 at 14:15 via telemedicine. He was to wear his oxygen as directed via nasal cannula. He was to resume his home medications as directed. He was to resume diet as tolerated and increase activity as tolerated. Medications prescribed on discharge included: 1. Align 4 mg daily while on antibiotics. 2. Dexamethasone 6 mg daily, #6, no refills. 3. Guaifenesin 600 mg twice daily while on antibiotics. 4. Cefdinir 300 mg twice daily, #12, no refills. 5. Phenergan with codeine syrup, 5 mL, q.4h. as needed for cough, 120 mL, no refills. 6. Albuterol inhaler p.r.n. as needed for shortness of breath q.4h., 4 times a day, #1 inhaler, no refills. CONDITION ON DISCHARGE: Stable and improving. DISPOSITION: The patient was discharged home. #[id number] [facility]
== END 2020-07-10 14:15 | disposition home or self-care (01) | DRG 177 ==
LOC: ER 10:06 → MS 12:30 → OBSVTOIN 12:30
PROVIDERS: ADMIT Nurse Practitioner Family; ATTEND Nurse Practitioner Family
PROC: XW033E5 Introduction of Remdesivir Anti-infective into Peripheral Vein, Percutaneous Approach, New Technology Group 5 (ICD-10-PCS; principal; 2020-07-06)
DX: U07.1 COVID-19 (principal); J12.82 Pneumonia due to coronavirus disease 2019; J96.01 Acute respiratory failure with hypoxia; M06.9 Rheumatoid arthritis, unspecified; I10 Essential (primary) hypertension; N40.0 Benign prostatic hyperplasia without lower urinary tract symptoms; M10.9 Gout, unspecified; M81.0 Age-related osteoporosis without current pathological fracture; Z96.652 Presence of left artificial knee joint; Z88.5 Allergy status to narcotic agent; Z88.1 Allergy status to other antibiotic agents; Z88.8 Allergy status to other drugs, medicaments and biological substances; F41.9 Anxiety disorder, unspecified; Z79.891 Long term (current) use of opiate analgesic; Z79.899 Other long term (current) drug therapy

== ENCOUNTER → 2020-07-20 | Outpatient (CLI) | payer BC ==
--- NOTE | 2020-07-22 08:27 | RAD ---
EXAM DESCRIPTION: Chest,2 Views: CR/DR CLINICAL HISTORY: 55 years Male acute bronchitis COMPARISON: Single view July 09 TECHNIQUE: Two views. PA and Lateral. FINDINGS: Lungs: Demonstrate peripheral infiltrates which are subpleural with infiltrate also in the left base. Largest subpleural peripheral infiltrate is left lower lobe superior segment, with consolidation. Bilateral perihilar peribronchial wall cuffing. Pleural spaces: No effusion or pneumothorax bilaterally. Heart: Normal size. Pulmonary Vascularity: Not increased. Mediastinum: Not widened. Aorta: Unremarkable. Bony Thorax/Spine: No acute bony thoracic abnormalities. IMPRESSION: Bilateral subpleural location of infiltrates with largest infiltrate superior segment left lower lobe with consolidation. Bilateral perihilar peribronchial wall cuffing. No acute pleural process. Imaging features can be seen with COVID-19 pneumonia, though are nonspecific and can occur with a variety of infectious and noninfectious processes. Infiltrates are decreasing in size bilaterally since the prior study. Electronically signed by: Ceferino Basilio MD 07/22/2020 8:25 AM [employer]
== END ==
LOC: RAD 14:43
PROVIDERS: ATTEND Nurse Practitioner Acute Care
DX: J20.9 Acute bronchitis, unspecified (principal)